=== PATIENT | male | born 1975 | race Hispanic/Latino ===

== ENCOUNTER 2024-07-30 06:53 | Emergency (ER) | payer OTHER ==
[2024-07-30 06:58] VITALS: TEMP 98.1
[2024-07-30 07:24] LABS: BASOPHILS % 0.7 % (0.0-1.0); EOSINOPHILS # (AUTO) 0.1 (0.0-0.4); EOSINOPHILS % 3.2 % (0.0-6.0); HEMATOCRIT 43.7 % (38.2-49.6); HEMOGLOBIN 14.8 g/dL (14.0-18.0); LYMPHOCYTES # (AUTO) 1.5 (1.0-3.2); LYMPHOCYTES % 37.1 % (18.0-39.1); MEAN CORPUSCULAR HEMOGLOBIN 29.2 pg (28-32); MEAN CORPUSCULAR HGB CONC 33.9 g/dL (31-35); MEAN CORPUSCULAR VOLUME 86.4 fL (81-99); MONOCYTES # (AUTO) 0.3 (0.2-0.8); MONOCYTES % 8.5 % (4.4-11.3); NEUTROPHILS % 50.5 % (38.7-80.0); PLATELET COUNT 212 x10e3/uL (140-360); RED BLOOD COUNT 5.06 x10e6/uL (4.3-5.7); RED CELL DISTRIBUTION WIDTH 12.5 % (11.7-14.4); WHITE BLOOD COUNT 4.02 x10e3/uL (4.8-10.8)
[2024-07-30] MEDS: LACTATED RINGER'S 1,000 ML INJ ONE (07:25)
[2024-07-30] MEDS: INSULIN REGULAR, HUMAN 100 UNIT/1 ML IV ONE (07:27)
[2024-07-30 07:42] LABS: ALBUMIN/GLOBULIN RATIO 1.1 (0.8-2.0); ANION GAP 12.6 mmol/L (8-16); BILIRUBIN,TOTAL 0.5 mg/dL (0.2-1.2); CALCIUM 9.9 mg/dL (8.4-10.2); CREATININE, SERUM 1.17 mg/dL (0.72-1.25); POTASSIUM 3.6 mmol/L (3.5-5.1); TOTAL PROTEIN 7.8 g/dL (6.5-8.1)
[2024-07-30 07:51] VITALS: PULSE 82; RESP 16; O2SAT 100
== END 2024-07-30 09:05 | disposition home or self-care (01) ==
LOC: ER 07:01
DX: R42 Dizziness and giddiness (principal); E11.65 Type 2 diabetes mellitus with hyperglycemia; I10 Essential (primary) hypertension
CPT/HCPCS: 36415; 80053; 82948; 85025; 93005; 99283; J7121

== ENCOUNTER 2024-09-07 13:29 | Emergency (ER) | payer OTHER ==
[~2024-09-07] VITALS: Ht 167.6 cm; Wt 106.6 kg
[2024-09-07 13:29] VITALS: PULSE 89; RESP 18; TEMP 97.6; O2SAT 99
[2024-09-07] MEDS ORDERED: ULTRAM 50MG50 MG PO (15:02)
== END 2024-09-07 16:26 | disposition home or self-care (01) ==
LOC: ER 13:33
DX: M25.562 Pain in left knee (principal); M70.52 Other bursitis of knee, left knee; M17.12 Unilateral primary osteoarthritis, left knee; M25.462 Effusion, left knee
CPT/HCPCS: 99283